=== PATIENT | male | born 1990 | race Caucasian/White ===

== ENCOUNTER 2021-11-14 12:55 | Emergency (ER) | payer OTHER ==
[2021-11-14] MEDS ORDERED: KEFLEX250 MG PO (14:20)
[2021-11-14] MEDS ORDERED: NORCO 5-325 TA1 EACH PO (14:20)
== END 2021-11-14 14:40 | disposition home or self-care (01) ==
LOC: FER 12:55
DX: S61.310A Laceration without foreign body of right index finger with damage to nail, initial encounter (principal); Z23 Encounter for immunization; W23.0XXA Caught, crushed, jammed, or pinched between moving objects, initial encounter; Y92.89 Other specified places as the place of occurrence of the external cause; Y99.0 Civilian activity done for income or pay
CPT/HCPCS: 73130; 90471; 90715